=== PATIENT | female | born 2000 ===

== ENCOUNTER 2019-08-31 14:47 | Emergency (ER) | payer BC ==
--- NOTE | 2019-08-31 15:29 | UC ---
Laceration HPI - HPI Summary HPI Summary: 19 y/o female presents to the urgent care accompany c/o cutting her left thumb w/ a knife s/p carving wood around 1400Pm today. Pt reports she tried to irrigated and applied pressure. Pt states pain is 5/10 specially at touch. She is afraid of blood and never had a laceration in the past. Pt has last Tetanus vaccine 10 years ago. Pt can move her finger w/o any difficulty and feels a mild numbness around the tip matty her thumb where the laceration is. Pt denies fever URi symptoms, cough, SOB, contact w/ someone positive for COVID 19, chest pain, FORDE, dizziness, abdominal pain, N/V/d. - History Of Current Complaint Chief Complaint: UCLaceration Stated Complaint: HAND LACERATION Time Seen by Provider: 08/31/19 15:19 Hx Obtained From: Patient Hx Last Menstrual Period: trans Laceration Location: Finger - left thumb laceration w/ a knife Mechanism Of Injury: Sharp Trauma Onset/Duration: Sudden Onset, Lasting Hours - 3 hrs ago Severity: Mild Pain Intensity: 3 Pain Scale Used: 0-10 Numeric Aggravating Factors: Other: - touch Related History: Dominant Hand Right - Allergies/Home Medications Allergies/Adverse Reactions: Allergies Allergy/AdvReac Type Severity Reaction Status Date / Time Cephalosporins Allergy Vomiting Verified 08/31/19 15:06 Penicillins Allergy Unknown Verified 08/31/19 15:06 Reaction Details Home Medications: Home Medications Spironolactone [Aldactone 100 MG-] 200 mg PO DAILY 08/31/19 [History Confirmed 08/31/19] estradioL [Estradiol] 4 mg PO DAILY 08/31/19 [History Confirmed 08/31/19] PMH/Surg Hx/FS Hx/Imm Hx Previously Healthy: Yes Other Endocrine History: acne - Surgical History Surgical History: Yes Surgery Procedure, Year, and Place: wisdom teeth - Family History Known Family History: Positive: Cardiac Disease, Diabetes - Social History Occupation: Employed Full-time Lives: With Family Alcohol Use: Weekly Substance Use Type: Marijuana Smoking Status (MU): Never Smoked Tobacco - Immunization History Most Recent Tetanus Shot: 2009 Hx Tetanus, Diphtheria Vaccination: No Review of Systems All Other Systems Reviewed And Are Negative: Yes Constitutional: Positive: Negative Skin: Positive: Other - Left thumb laceration w/ a knife s/p carving wood Eyes: Positive: Negative ENT: Positive: Negative Respiratory: Positive: Negative Cardiovascular: Positive: Negative Gastrointestinal: Positive: Negative Genitourinary: Positive: Negative Motor: Positive: Negative Neurovascular: Positive: Negative Musculoskeletal: Positive: Other: - left thumb pain s/p laceration Neurological/Mental Status: Positive: Negative Psychological: Positive: Negative Is Patient Immunocompromised?: No Physical Exam - Summary Physical Exam Summary: Vital Signs Reviewed: Yes General: well developed, well nourished female sitting in the examining table w /o any apparent distress. Eye Exam: Normal Eyes: Positive: Conjunctiva Clear - PERRLA, EOMI, fundi grossly normal ENT: Positive: Normal ENT inspection, Hearing grossly normal, Pharynx normal, TMs normal Neck: Positive: Supple, Nontender, No Lymphadenopathy Respiratory: Positive: Chest non-tender, Lungs clear, Normal breath sounds, No respiratory distress Cardiovascular: Positive: RRR, No Murmur, Pulses Normal, Brisk Capillary Refill Abdomen Description: Positive: Nontender, No Organomegaly, Soft. Negative: CVA Tenderness (R), CVA Tenderness (L) Bowel Sounds: Positive: Present Musculoskeletal: Positive: Strength Intact, ROM Intact, No Edema Neurological: Positive: Alert, Muscle Tone Normal Psychological Exam: Normal Skin: Positive: a semilunar superficial laceration on the medial aspect of left thumb, no nail involvement, about 1.8cm in size, bleeding, FROM of left thumb and left hand, No FB observed, no ecchymosis around Thumb. sensation intact, capillary refill brisk, and pulses WNL. Triage Information Reviewed: Yes Vital Signs: Initial Vital Signs Temp 98.4 F 08/31/19 15:00 Pulse 94 08/31/19 15:00 Resp 16 08/31/19 15:00 BP 143/81 08/31/19 15:00 Pulse Ox 100 08/31/19 15:00 Laceration Repair - Laceration Repair 1 Description: Irregular - semilunar shape laceration obelow the Rt patella s/p fall Laceration Size After Repair: Length (cm) - 3.0, Width (mm) - 0.8cm Modified For Repair: No Type Injection: Local Anesthesia Used: 1.0% Lido - 3ml Cleansing Completed Via Routine Prep: Yes Irrigation With Pressure Irrigation Device: Yes Closure Material: Sutures - 9 Closure Method: Single Layer Suture Of: Skin, SQ, Mucus Membrane Suture Type: Prolene - 4.0 Laceration Course/Dx - Course/Dx Course Of Treatment: 19 y/o female presents to the urgent care accompany c/o cutting her left thumb w/ a knife s/p carving wood around 1400Pm today. Pt reports she tried to irrigated and applied pressure. Pt states pain is 5/10 specially at touch. She is afraid of blood and never had a laceration in the past. Pt has last Tetanus vaccine 10 years ago. Pt can move her finger w/o any difficulty and feels a mild numbness around the tip matty her thumb where the laceration is. Pt denies fever URi symptoms, cough, SOB, contact w/ someone positive for COVID 19, chest pain, FORDE, dizziness, abdominal pain, N/V/d. Hx obtained. Pt w/ a semilunar superficial laceration on the medial aspect of her left thumb, no nail involvement, about 1.8cm in size, bleeding, FROM of left thumb and left hand, No FB observed, no ecchymosis around Thumb. sensation intact, capillary refill brisk, and pulses WNL on examination. LACERATION PROCEDURE NOTE: . Copious irrigation was done with saline by the nurse and the wound explored. There was no FB or deep structure injury noted. FROM of left Thumb and hand. procedure was explained and consent obtained , Timeout performed. The wound was anesthetized by digital block with 2 mL of 1% lido with good anesthesia. Sterile drape and prep were done. There were 3 sutures with 5.0 Prolene type of suture. skin adhesive applied to close laceration on the lateral side of nail and 1 steri-strip used. The length of the wound after closure was 1.8cm. No debridement done. Pt tolerated the procedure well without adverse effects. Neurovascular intact and FROM of left thumb. Tdap ordered and applied by nurse. wound covered w/ Bacitracin and sterile dressing by nurse. Pt advised to f/u suture removal in 10-12 days and if any signs of infection develop to immediately return to the urgent care of PCP for further management and treatment. Pt's BP is elevated today and advised to decrease salt in diet, monitor BP and f/u with PCP if BP continues to be elevated for further management. Pt understood and agreed and left the clinic ambulating A&Ox3. - Differential Dx - Laceration/Wound Differental Diagnoses: Abrasion, Avulsion, Laceration, Puncture Wound, Tendon Laceration - Diagnosis Provider Diagnosis: Laceration of left thumb, Elevated BP without diagnosis of hypertension Discharge ED - Sign-Out/Discharge Documenting (check all that apply): Patient Departure - D/C home All imaging exams completed and their final reports reviewed: No Studies - Discharge Plan Condition: Stable Disposition: HOME Patient Education Materials: Care For Your Stitches (ED), Laceration (ED) Referrals: [facility] [Outside] - 1 Week Additional Instructions: 1-Please apply topical Bacitracin antibiotic over the wound. Keep wound clean and dry. Avoid too much flexion of your thumb 2- F/u suture removal in 10-12 days w/ your PCP or here at the urgent care. 3-Take Ibuprofen or Tylenol PO q6-8hrs prn for pain or swelling. 4- If you develop fever or redness around your thumb please return to the Urgent care or your PCP for further management 5- Your BP is elevated today and advised to decrease salt in diet, monitor BP and f/u with PCP for further management. - Billing Disposition and Condition Condition: STABLE Disposition: Home - Attestation Statements Provider Attestation: This patient was not seen by me. I was available for consult. Chart reviewed. TAMERA
[2019-08-31] MEDS ORDERED: Tetan/Diph/Pertus SYR(Tdap)* 0.5 ML SYR(BOOSTRIX) use SYR contains LATEX IM ONE (15:41)
[2019-08-31] MEDS ORDERED: Lidocaine 1% MPF ** 5 ML VIAL INJ ONE (15:42)
== END 2019-08-31 16:45 | disposition home or self-care (01) ==
LOC: UCEAST 14:47
DX: S61.012A Laceration without foreign body of left thumb without damage to nail, initial encounter (principal); W26.0XXA Contact with knife, initial encounter; Y93.89 Activity, other specified; Y92.9 Unspecified place or not applicable; Z23 Encounter for immunization; R03.0 Elevated blood-pressure reading, without diagnosis of hypertension; Z88.1 Allergy status to other antibiotic agents
CPT/HCPCS: 12001; 12042; 90471; 90715; 99201; G0463

== ENCOUNTER 2019-09-14 16:34 | Emergency (ER) | payer BC ==
[2019-09-14 17:09] VITALS: BP 136/80
== END 2019-09-14 17:10 | disposition home or self-care (01) ==
LOC: UCEAST 16:34